=== PATIENT | male | born 1950 | race Caucasian/White ===

== ENCOUNTER 2017-12-17 20:31 | Emergency (ER) | payer MEDICARE, OTHER ==
[2017-12-17] MEDS ORDERED: Tetan/Diph/Pertus SYR(Tdap)* 0.5 ML SYR(BOOSTRIX) use SYR IM ONE (22:55)
[2017-12-17] MEDS ORDERED: NS 0.9% 1000 ML* 1,000 ML IV ONE (22:55)
--- NOTE | 2017-12-17 22:59 | ED ---
Laceration/Wound HPI - HPI Summary HPI Summary: This is colin Murray documenting for attending Ericka Valladares MD. This patient is a 67 year old M presenting to [facility] accompanied by his daughter s/p fall that occurred directly [employer]. Pt states he was lying down and when he stood up to walk in to the other room he became dizzy and fell. The patient hit his head on the edge of a table as he fell. The patient rates the pain 3/10 in severity. Patient reports fatigue, sore neck, LOC, epistaxis, and laceration between the eyebrows. Pt states he did not sleep well last night and ran 5 miles today as well as hiking 6 after. He believes this combined with not drinking enough water is what caused the fall. Pt is unsure when his last tetanus shot was. - History of Current Complaint Stated Complaint: FALL/HEAD INJURY Hx Obtained From: Patient Onset/Duration: Still Present Timing: Constant Onset Severity: Mild Current Severity: Mild Pain Intensity: 3 Pain Scale Used: 0-10 Numeric Associated Signs & Symptoms: Negative - fever - Allergy/Home Medications Allergies/Adverse Reactions: Allergies Allergy/AdvReac Type Severity Reaction Status Date / Time No Known Allergies Allergy Verified 12/17/17 20:39 Home Medications: Home Medications Aspirin [Aspir-Low] 81 mg PO DAILY 12/17/17 [History Confirmed 12/17/17] Atorvastatin* [Lipitor*] 10 mg PO DAILY 12/17/17 [History Confirmed 12/17/17] PMH/Surg Hx/FS Hx/Imm Hx Endocrine/Hematology History: Denies: Hx Diabetes Cardiovascular History: Reports: Other Cardiovascular Problems/Disorders - atherosclerosis Denies: Hx Auto Implanted Cardiovert Defib, Hx Cardiac Arrest, Hx Congenital Heart Disease, Hx Embolism, Hx Hypertension, Hx Pacemaker/ICD Respiratory History: Denies: Hx Chronic Obstructive Pulmonary Disease (COPD), Hx Pleural Effusion Musculoskeletal History: Denies: Hx Rheumatoid Arthritis, Hx Back Problems, Hx Bursitis Sensory History: Denies: Hx Deafness Psychiatric History: Denies: Hx Attention Deficit Hyperactivity Disorder, Hx Autism, Hx Eating Disorder, Hx Oppositional [place] Disorder, Hx Depression - Immunization History Date of Tetanus Vaccine: utd Date of Influenza Vaccine: fall 2016 Infectious Disease History: No Infectious Disease History: Denies: Traveled Outside the [place] in Last 30 Days - Family History Known Family History: Negative: Cardiac Disease, Hypertension, Diabetes, Renal Disease, Respiratory Disease, Seizure Disorder, Blood Disorder - Social History Lives: With Family Alcohol Use: Weekly Alcohol Amount: 4-5 days a week, 1-2 glasses Substance Use Type: Reports: None Smoking Status (MU): Never Smoked Tobacco Review of Systems Positive: Fatigue. Negative: Fever Positive: Other - epistaxis Positive: Other - sore neck Positive: Other - laceration Positive: Syncope All Other Systems Reviewed And Are Negative: Yes Physical Exam - Summary Physical Exam Summary: VITAL SIGNS: Reviewed. GENERAL: Patient is a well-developed and nourished male who is lying comfortable in the stretcher. Patient is not in any acute respiratory distress. HEAD AND FACE: No signs of trauma. No ecchymosis, hematomas or skull depressions. No sinus tenderness. EYES: PERRLA, EOMI x 2, No injected conjunctiva, no nystagmus. EARS: Hearing grossly intact. Ear canals and tympanic membranes are within normal limits. MOUTH: Oropharynx within normal limits. NECK: Supple, trachea is midline, no adenopathy, no JVD, no carotid bruit, no c- spine tenderness, neck with full ROM. CHEST: Symmetric, no tenderness at palpation LUNGS: Clear to auscultation bilaterally. No wheezing or crackles. CVS: Regular rate and rhythm, S1 and S2 present, no murmurs or gallops appreciated. ABDOMEN: Soft, non-tender. No signs of distention. No rebound no guarding, and no masses palpated. Bowel sounds are normal. EXTREMITIES: FROM in all major joints, no edema, no cyanosis or clubbing. NEURO: Alert and oriented x 3. No acute neurological deficits. Speech is normal and follows commands. SKIN: 6cm laceration over the left forehead above left eye brow Triage Information Reviewed: Yes Vital Signs On Initial Exam: Initial Vitals Temp Pulse Resp BP Pulse Ox 98.0 F 59 16 160/73 99 12/17/17 20:37 12/17/17 20:37 12/17/17 20:37 12/17/17 20:37 12/17/17 20:37 Vital Signs Reviewed: Yes Procedures - Laceration/Wound Repair 1 Location: head Description: Linear Anesthesia: 2.0% - 6cc's, Lido, Epi Length, Depth and Shape: 6cm Irrigated w/ Saline (ccs): 100 Laceration/Wound Explored: clean Suture Type: Nylon - 5-0 (13), Chromic - 4-0 (6) Number of Sutures: 19 Layer Closure?: Yes Sterile Dressing Applied?: Yes Diagnostics - Vital Signs Vital Signs Temp Pulse Resp BP Pulse Ox 12/17/17 20:37 98.0 F 59 16 160/73 99 - Laboratory Result Diagrams: 12/17/17 23:04 12/17/17 23:04 Lab Statement: Any lab studies that have been ordered have been reviewed, and results considered in the medical decision making process. - EKG 2120 Cardiac Rate: Bradycardia EKG Rhythm: Sinus Bradycardia - at 59 BPM Ectopy: PVCs Laceration Repair Course/Dx - Course Assessment/Plan: This patient is a 67 year old M [facility] by his daughter s/p fall that occurred directly [employer]. Pt states he was lying down and when he stood up to walk in to the other room he became dizzy and fell. The patient hit his head on the edge of a table as he fell. The patient rates the pain 3/10 in severity. Patient reports fatigue, sore neck, LOC , epistaxis, and laceration between the eyebrows. Pt states he did not sleep well last night and ran 5 miles today as well as hiking 6 after. He believes this combined with not drinking enough water is what caused the fall. Laceration was repaired in the ED and the procedure was well tolerated. An EKG reveals sinus clau with PVCs. Test results with no significant abnormalities. In the ED course the patient was given tetanus booster. Patient will be discharged and follow up from his doctor in [place] or the referral center. The patient is agreeable with this plan. - Clinical Impression Provider Diagnoses: Syncope, Laceration of head Discharge - Sign-Out/Discharge Documenting (check all that apply): Patient Departure - Discharge Plan Condition: Stable Disposition: HOME Patient Education Materials: Laceration (ED), Care For Your Stitches (DC) Referrals: [facility] PHYSICIAN REFERRAL [Outside] Additional Instructions: Keep the suture dry for 2 days and they may be removed for 6-7 days. RETURN TO THE EMERGENCY DEPARTMENT FOR CHANGING OR WORSENING SYMPTOMS Attestation Statement Scribe Attestation: This is colin Murray documenting for attending Ericka Valladares MD. User Type: Provider with Scribe Provider Attestation: The documentation recorded by the scribe accurately reflects the service I personally performed and the decisions made by me.
[2017-12-17 23:16] LABS: ABS Basophils 0.1 10^3/ul (0-0.2); ABS Eosinophils 0.1 10^3/ul (0-0.6); ABS Monocytes 0.5 10^3/ul (0-0.8); ABS Neutrophils 4.9 10^3/ul (1.5-7.7); ABS Nucleated RBC 0 10^3/ul; Eosinophil % 1.1 % (0-6); Hematocrit 43 % (42-52); Hemoglobin 14.6 g/dl (14.0-18.0); Lymphocyte % 15.6 % (25-47); Mean Corpuscular HGB Conc 34 g/dl (31-36); Mean Corpuscular Hemoglobin 32 pg (27-31); Mean Corpuscular Volume 93 fL (80-94); Mean Platelet Volume 8.7 um3 (7.4-10.4); Nucleated Red Blood Cells % 0.1; Platelet Count 214 10^3/ul (150-450); Red Blood Count 4.62 10^6/ul (4.00-5.40); Red Cell Distribution Width 14 % (10.5-15); White Blood Count 6.5 10^3/ul (3.5-10.8)
[2017-12-17 23:26] LABS: INR 0.98 (0.77-1.02)
[2017-12-17] MEDS ORDERED: Lidocaine 2% EPI 1:200000 MPF*10-20 ML VIAL ONE (23:35)
[2017-12-17 23:37] LABS: EGFR Non-African American 95.1 (>60)
[2017-12-18 01:13] VITALS: BP 109/78
== END 2017-12-18 01:09 | disposition home or self-care (01) ==
LOC: ED 20:31
DX: R55 Syncope and collapse (principal); R53.83 Other fatigue; R04.0 Epistaxis; S01.91XA Laceration without foreign body of unspecified part of head, initial encounter; W19.XXXA Unspecified fall, initial encounter; Y92.9 Unspecified place or not applicable
CPT/HCPCS: 12001; 36415; 80053; 82550; 83605; 83735; 84443; 84484; 85025; 85610; 85730; 90471; 90715; 93005; 99282